=== PATIENT | male | born 1970 | race Hispanic/Latino ===

== ENCOUNTER → 2024-06-04 | Day surgery (SDC) | payer BC ==
[~2024-06-04] MED LIST: ATORVASTATIN CA20 MG PO; BENICAR20 MG PO; LABETALOL HCL200 MG PO; LIDOCAINE HCL 2% LOCAL INJ 5 ML SDV VIAL INJ ONE; OMEGA 3 1,0001 EACH PO; PANTOPRAZOLE SO40 MG PO; PROPOFOL IV EMULSION 10 MG/ML 20 ML VIAL ONE; PROPOFOL IV EMULSION 50 ML IV ONE; SUCRALFATE1 GM PO; SYNTHROID125 MCG PO; TRICOR145 MG PO; VITAMIN D250 MCG; ZETIA10 MG PO
[2024-06-04] MEDS: LACTATED RINGER'S 1,000 ML ONE (10:32)
[2024-06-04 13:00] VITALS: BP 127/82; PULSE 72; RESP 16; TEMP 97.3; O2SAT 98
== END | disposition home or self-care (01) ==
LOC: OR 08:48
PROVIDERS: ATTEND Internal Medicine Gastroenterology
DX: Z12.11 Encounter for screening for malignant neoplasm of colon (principal); D12.3 Benign neoplasm of transverse colon; D12.4 Benign neoplasm of descending colon; K29.50 Unspecified chronic gastritis without bleeding; K31.A15 Gastric intestinal metaplasia without dysplasia, involving multiple sites; K21.9 Gastro-esophageal reflux disease without esophagitis; K44.9 Diaphragmatic hernia without obstruction or gangrene; K62.5 Hemorrhage of anus and rectum; K57.30 Diverticulosis of large intestine without perforation or abscess without bleeding; K64.1 Second degree hemorrhoids; I10 Essential (primary) hypertension; E78.5 Hyperlipidemia, unspecified; E11.9 Type 2 diabetes mellitus without complications; E03.9 Hypothyroidism, unspecified; F17.200 Nicotine dependence, unspecified, uncomplicated; Z88.0 Allergy status to penicillin; Z01.810 Encounter for preprocedural cardiovascular examination; Z79.899 Other long term (current) drug therapy; Z68.34 Body mass index [BMI] 34.0-34.9, adult; Z87.898 Personal history of other specified conditions
CPT/HCPCS: 43239; 45378; 45381; 45384; 45385; 93005; J2003